=== PATIENT | female | born 1960 | race American Indian/Alaskan Native ===

== ENCOUNTER 2019-08-12 21:13 | Emergency (ER) | payer OTHER ==
--- NOTE | 2019-08-13 07:39 | Emergency Department Report ---
- General Chief Complaint: Upper Respiratory Infection Stated Complaint: COLD SYM Time Seen by Provider: 08/13/19 06:49 Source: patient Mode of arrival: Ambulatory Limitations: No Limitations - History of Present Illness Initial Comments: This very pleasant 58-year-old female presents the emergency department for evaluation of cough, congestion, generalized body aches and generalized malaise over the past 3 days. Patient states she did not get a flu shot this year. She reports she has had a fever during this time, productive cough with clear mucus. Patient denies any known past medical history other than bronchitis and pneumonia in the past, she denies any allergies to medications her current medication use. She denies any recent surgeries, travel, immobilization, chest pain, shortness of breath, dizziness, nausea, vomiting, diarrhea, lower extremity edema or any other associated symptoms. - Related Data Previous Rx's Medication Instructions Recorded Last Taken Type Benzonatate [Tessalon Perles] 100 mg PO Q8HR #21 capsule 08/13/19 Unknown Rx methylPREDNISolone [Medrol 4MG 4 mg PO QDAY #1 tab.ds.pk 08/13/19 Unknown Rx DOSEPAK (21 tabs)] Allergies Allergy/AdvReac Type Severity Reaction Status Date / Time No Known Allergies Allergy Unverified 08/13/19 01:03 ED Review of Systems ROS: Stated complaint: COLD SYM Other details as noted in HPI Comment: All other systems reviewed and negative Constitutional: chills, fever Eyes: denies: eye pain, eye discharge, vision change ENT: throat pain. denies: ear pain Respiratory: cough. denies: shortness of breath, wheezing Cardiovascular: denies: chest pain, palpitations Endocrine: no symptoms reported Gastrointestinal: denies: abdominal pain, nausea, diarrhea Genitourinary: denies: urgency, dysuria, discharge Musculoskeletal: as per HPI, myalgia. denies: back pain, joint swelling, arthralgia Skin: denies: rash, lesions Neurological: denies: headache, weakness, paresthesias Psychiatric: denies: anxiety, depression Hematological/Lymphatic: denies: easy bleeding, easy bruising ED Past Medical Hx - Past Medical History Previous Medical History?: Yes Additional medical history: Bronchitis, Pneumonia - Surgical History Past Surgical History?: Yes Additional Surgical History: Hernia repair, Skin graft left arm. - Social History Smoking Status: Never Smoker Substance Use Type: None - Medications Home Medications: Home Medications Medication Instructions Recorded Confirmed Last Taken Type Benzonatate [Tessalon Perles] 100 mg PO Q8HR #21 capsule 08/13/19 Unknown Rx methylPREDNISolone [Medrol 4MG 4 mg PO QDAY #1 tab.ds.pk 08/13/19 Unknown Rx DOSEPAK (21 tabs)] ED Physical Exam - General Limitations: No Limitations General appearance: alert, in no apparent distress - Head Head exam: Present: atraumatic, normocephalic - Eye Eye exam: Present: normal appearance - ENT ENT exam: Present: mucous membranes moist - Neck Neck exam: Present: normal inspection, full ROM. Absent: meningismus - Respiratory Respiratory exam: Present: normal lung sounds bilaterally. Absent: respiratory distress, wheezes, rales, rhonchi, stridor - Cardiovascular Cardiovascular Exam: Present: regular rate, normal rhythm. Absent: systolic murmur, diastolic murmur, rubs, gallop - GI/Abdominal GI/Abdominal exam: Present: soft, normal bowel sounds - Extremities Exam Extremities exam: Present: normal inspection, other (negative Homans sign bilaterally). Absent: calf tenderness - Back Exam Back exam: Present: normal inspection - Neurological Exam Neurological exam: Present: alert, oriented X3 - Psychiatric Psychiatric exam: Present: normal affect, normal mood - Skin Skin exam: Present: warm, dry, intact, normal color. Absent: rash ED Course Vital Signs 08/12/19 08/13/19 08/13/19 21:58 00:57 05:21 Temperature 99.6 F 99.3 F Pulse Rate 95 H 87 84 Respiratory 20 20 20 Rate Blood Pressure 129/71 116/72 122/67 O2 Sat by Pulse 95 98 94 Oximetry ED Medical Decision Making - Medical Decision Making Patient is nontoxic in no acute distress. Vitals are stable. Patient is a low risk by well's criteria for PE and no pleuritic pain, hypoxia, tachycardia, hemoptysis, recent immobilization or surgery, or history of PE. Patient has normal lung sounds, no hypoxia, and no sounds of pneumonia on exam. I did offer to order an x-ray however due to her abnormal lung sounds and normal vitals patient declined which I think is reasonable. We'll treat with steroids, cough medication and supportive therapy for likely viral syndrome most likely influenza. Patient is out of the window for Tamiflu at this time. Patient instructed to return emergently changing worsening symptoms. - Differential Diagnosis influenza, pneumonia, bronchitis, PE Critical care attestation.: If time is entered above; I have spent that time in minutes in the direct care of this critically ill patient, excluding procedure time. ED Disposition Clinical Impression: Acute viral syndrome Disposition: DC-01 TO HOME OR SELFCARE Is pt being admited?: No Does the pt Need Aspirin: No Condition: Stable Instructions: Influenza (ED) Prescriptions: methylPREDNISolone [Medrol 4MG DOSEPAK (21 tabs)] 4 mg PO QDAY #1 tab.ds.pk Benzonatate [Tessalon Perles] 100 mg PO Q8HR #21 capsule Referrals: LORENZO WANG MD [Primary Care Provider] - 3-5 Days Forms: Work/School Release Form(ED) Time of Disposition: 07:39
[2019-08-13 07:51] VITALS: BP 111/68
== END 2019-08-13 07:53 | disposition home or self-care (01) ==
LOC: ED 21:13
DX: B34.9 Viral infection, unspecified (principal); Z79.899 Other long term (current) drug therapy

== ENCOUNTER 2020-10-19 11:25 | Outpatient (CLI) | payer BC ==
[2020-10-19 12:14] LABS: Basophils % (Auto) 0.7 % (0.0-1.8); Eosinophils # (Auto) 0.1 K/mm3 (0.0-0.4); Eosinophils % (Auto) 1.5 % (0.0-4.3); Hematocrit 40.2 % (30.3-42.9); Hemoglobin 13.8 gm/dl (10.1-14.3); Lymphocytes # (Auto) 2.5 K/mm3 (1.2-5.4); Lymphocytes % (Auto) 52.5 % (13.4-35.0); Mean Corpuscular HGB Conc 35 % (30-34); Mean Corpuscular Volume 89 fl (79-97); Monocytes # (Auto) 0.4 K/mm3 (0.0-0.8); Monocytes % (Auto) 8.3 % (0.0-7.3); Platelet Count 342 K/mm3 (140-440); Red Cell Distribution Width 13.4 % (13.2-15.2)
[2020-10-19 12:33] LABS: Mucus,Urine FEW /HPF; WBC,Urine < 1.0 /HPF (0.0-6.0)
[2020-10-19 12:39] LABS: Bilirubin,Urine NEG (Negative); Blood,Urine NEG (Negative); Color,Urine Yellow (Yellow); Protein,Urine <15 mg/dL mg/dL (Negative); Urobilinogen,Urine < 2.0 mg/dL (<2.0)
[2020-10-19 13:08] LABS: Creatinine,Urine 113.9 mg/dL (0.1-20.0)
[2020-10-19 20:05] LABS: Alanine Aminotransferase 11 units/L (7-56); Albumin 4.3 g/dL (3.9-5); BUN/Creatinine Ratio 18; Blood Urea Nitrogen 14 mg/dL (7-17); Calcium 9.4 mg/dL (8.4-10.2); Chol/HDL Ratio 2.79 %; HDL Cholesterol 53 mg/dL (40-59); Hemolysis Index 2; LDL Cholesterol,Direct 90 mg/dL (50-130)
== END 2020-10-19 11:26 | disposition home or self-care (01) ==
LOC: LAB 11:25
PROVIDERS: ATTEND Family Medicine
DX: E11.9 Type 2 diabetes mellitus without complications (principal)
CPT/HCPCS: 36415; 80053; 80061; 81001; 82043; 83036; 85025

== ENCOUNTER 2021-03-07 00:53 | Emergency (ER) | payer BC ==
[2021-03-07] MEDS ORDERED: oxyCODONE /ACETAMINOPHEN 5-325MG TAB PO ONE (03:05)
--- NOTE | 2021-03-07 03:48 | XRay Report ---
Pelvis AP Indication: R LE pain radiating Findings: There is no fracture, subluxation, or other acute radiographic abnormality of the pelvis or either hi p. Signer Name: Sony Allen MD Signed: 03/07/2021 3:43 AM Workstation Name: [id number]
--- NOTE | 2021-03-07 03:50 | Vascular Lab Report ---
DUPLEX DOPPLER LOWER EXTREMITY VEINS, RIGHT INDICATION / CLINICAL INFORMATION: Right leg pain. TECHNIQUE: Duplex doppler imaging was performed through the veins of the right lower extremity using venous compression and other maneuvers. COMPARISON: None available. FINDINGS: RIGHT COMMON FEMORAL VEIN: Negative. RIGHT FEMORAL VEIN: Negative. RIGHT POPLITEAL VEIN: Negative. RIGHT CALF VEINS: Negative. ADDITIONAL FINDINGS: None. IMPRESSION: 1. No sonographic evidence for DVT in the right lower extremity. Signer Name: Sony Allen MD Signed: 03/07/2021 3:46 AM Workstation Name: [id number]
[2021-03-07] MEDS ORDERED: MORPHINE 2 MG/1 ML INJ IV ONE (03:57)
[2021-03-07] MEDS ORDERED: ONDANSETRON 4 MG/2 ML INJ IV ONE (04:11)
[2021-03-07 04:13] LABS: Hemoglobin 14.2 gm/dl (10.1-14.3); Mean Corpuscular HGB Conc 34 % (30-34); Mean Corpuscular Volume 89 fl (79-97); Red Cell Distribution Width 14.6 % (13.2-15.2)
[2021-03-07 04:17] LABS: Platelet Count 121 K/mm3 (140-440)
[2021-03-07 04:53] LABS: Large Platelets Few; Platelet Estimate Consistent w Auto; RBC Morphology Normal; Total Cells Counted 100
[2021-03-07 06:13] LABS: Blood Urea Nitrogen 9 mg/dL (7-17); Calcium 9.1 mg/dL (8.4-10.2); Hemolysis Index 76
[2021-03-07 06:14] LABS: BUN/Creatinine Ratio 18
--- NOTE | 2021-03-07 06:22 | Emergency Department Report ---
<JUWAN RUSSELL - Last Filed: 03/07/21 06:57> ED General Adult HPI - General Chief complaint: Extremity Injury, Lower Stated complaint: POSS CLOT RT LEG Source: patient Mode of arrival: Ambulatory Limitations: No Limitations - History of Present Illness Initial comments: 60-year-old female who works in the [employer] here complains of right leg pain. It was atraumatic. She states it is located in the right thigh and sometimes radiates down. She also states that her leg feels red and swollen. Severity scale (0 -10): 7 - Related Data Previous Rx's Medication Instructions Recorded Last Taken Type Benzonatate [Tessalon Perles] 100 mg PO Q8HR #21 capsule 08/13/19 Unknown Rx methylPREDNISolone [Medrol 4MG 4 mg PO QDAY #1 tab.ds.pk 08/13/19 Unknown Rx DOSEPAK (21 tabs)] Allergies Allergy/AdvReac Type Severity Reaction Status Date / Time No Known Allergies Allergy Unverified 08/13/19 01:03 ED Review of Systems Constitutional: denies: chills, fever Eyes: denies: eye pain, eye discharge, vision change ENT: denies: ear pain, throat pain Respiratory: denies: cough, shortness of breath, wheezing Cardiovascular: denies: chest pain, palpitations Endocrine: no symptoms reported Gastrointestinal: denies: abdominal pain, nausea, diarrhea Genitourinary: denies: urgency, dysuria, discharge Musculoskeletal: myalgia. denies: back pain Skin: denies: rash Neurological: denies: headache, weakness Psychiatric: denies: anxiety, depression Hematological/Lymphatic: denies: easy bleeding ED Past Medical Hx - Past Medical History Previous Medical History?: Yes Hx Diabetes: Yes Additional medical history: Bronchitis, Pneumonia - Surgical History Past Surgical History?: Yes Additional Surgical History: Hernia repair, Skin graft left arm. - Social History Smoking Status: Never Smoker Substance Use Type: None - Medications Home Medications: Home Medications Medication Instructions Recorded Confirmed Last Taken Type Benzonatate [Tessalon Perles] 100 mg PO Q8HR #21 capsule 08/13/19 Unknown Rx methylPREDNISolone [Medrol 4MG 4 mg PO QDAY #1 tab.ds.pk 08/13/19 Unknown Rx DOSEPAK (21 tabs)] ED Physical Exam - General Limitations: No Limitations General appearance: alert, in no apparent distress - Head Head exam: Present: atraumatic, normocephalic - Eye Eye exam: Present: normal appearance - ENT ENT exam: Present: mucous membranes moist - Neck Neck exam: Present: normal inspection - Respiratory Respiratory exam: Present: normal lung sounds bilaterally. Absent: respiratory distress - Cardiovascular Cardiovascular Exam: Present: regular rate, normal rhythm. Absent: systolic murmur, diastolic murmur, rubs, gallop - Expanded Cardiovascular Exam Expanded Peripheral pulses: 1+: Femoral (R), Femoral (L), 2+: Dorsalis Pedis (R), Dorsalis Pedis (L) - GI/Abdominal GI/Abdominal exam: Present: soft, normal bowel sounds - Extremities Exam Extremities exam: Present: normal inspection - Back Exam Back exam: Present: normal inspection - Neurological Exam Neurological exam: Present: alert, oriented X3 - Psychiatric Psychiatric exam: Present: normal affect, normal mood - Skin Skin exam: Present: warm, dry, intact, normal color. Absent: rash ED Course - Reevaluation(s) Reevaluation #1: 03/07/21 06:44 I discussed results with patient she states she feels improved. ED Medical Decision Making - Lab Data Result diagrams: 03/07/21 03:52 03/07/21 05:17 - Radiology Data Radiology results: report reviewed, image reviewed - Medical Decision Making 60-year-old female presents emergency department after developing pain in her right thigh for the past 5 days. On exam patient does have decreased pulses in the femoral area and tenderness in the right thigh. Given this I am evaluating her aorta and femoral arteries. I have obtained an x-ray of the pelvis that is negative and a ultrasound of the right lower extremity which shows no DVT. ED Disposition Clinical Impression: Right thigh pain, Sciatica Disposition: DC-01 TO HOME OR SELFCARE Is pt being admited?: No Does the pt Need Aspirin: No Condition: Stable Instructions: Sciatica Referrals: PRIMARY MD PEREZ [Primary Care Provider] - 3-5 Days PATRICE JERRY MD [Referring] - 3-5 Days Forms: Work/School Release Form(ED) <ELISEO HORVATH - Last Filed: 03/07/21 08:13> ED Review of Systems ROS: Stated complaint: POSS CLOT RT LEG Other details as noted in HPI ED Course Vital Signs 03/07/21 01:18 Temperature 98.6 F Pulse Rate 80 Respiratory 18 Rate Blood Pressure 160/84 O2 Sat by Pulse 95 Oximetry - Reevaluation(s) Reevaluation #2: 03/07/21 08:[address] Russell to follow-up CTA of the abdomen with runoff to the right lower extremity. There is no vascular abnormality identified although there is finding of possible right Bartholin gland cyst. I personally went and assessed the patient and inquired about her pain which she states is radiating down the back of her right thigh. I performed a vaginal exam in the form of inspection and palpation and there is no significant tender masses of the vulva and no obvious signs of infection. I therefore proceeded with discharge of the patient with instructions to follow-up with a neurologist for possible sciatica. Instructed her to take ibuprofen 600 to 800 mg up to 3 times daily only with food as needed for the pain until she is able to follow-up. The patient expressed understanding agreement with this plan of care ED Medical Decision Making - Lab Data Result diagrams: 03/07/21 03:52 03/07/21 05:17 Critical care attestation.: If time is entered above; I have spent that time in minutes in the direct care of this critically ill patient, excluding procedure time. ED Disposition Is pt being admited?: No
--- NOTE | 2021-03-07 07:07 | Cat Scan Report ---
CTA ABDOMEN, PELVIS, AND LOWER EXTREMITIES WITH CONTRAST INDICATION / CLINICAL INFORMATION: Weak femoral pulses; RIGHT leg pain. TECHNIQUE: Axial CT images were obtained through the abdomen, pelvis and lower extremities after inje ction of 100 cc of Omnipaque 350 IV contrast. 3 plane MIP / 3D reconstructions were produced. All CT scans at this location are performed using CT dose reduction for ALARA by means of automated exposure control. COMPARISON: None available. FINDINGS: CTA ABDOMEN: Abdominal Aorta: No significant abnormality. Celiac Artery: No significant abnormality. Superior Mesenteric Artery: No significant abnormality. Right Renal Artery: No significant abnormality. Left Renal Artery: No significant abnormality. Inferior Mesenteric Artery: No significant abnormality. CTA PELVIS: RIGHT: - Common Iliac Artery: Mild atherosclerotic calcification without stenosis. - Internal Iliac Artery: No significant abnormality. - External Iliac Artery: No significant abnormality. LEFT: - Common Iliac Artery: No significant abnormality. - Internal Iliac Artery: No significant abnormality. - External Iliac Artery: No significant abnormality. CTA LOWER EXTREMITIES: RIGHT LOWER EXTREMITY: - Common Femoral Artery: No significant abnormality. - Superficial Femoral Artery: No significant abnormality. - Profunda Femoral Artery: No significant abnormality. - Popliteal Artery: No significant abnormality. - Anterior Tibial Artery: No significant abnormality. - Tibioperoneal Trunk: No significant abnormality. - Posterior Tibial Artery: No significant abnormality. - Peroneal Artery: No significant abnormality. - Ankle runoff: Three vessel. LEFT LOWER EXTREMITY: - Common Femoral Artery: No significant abnormality. - Superficial Femoral Artery: No significant abnormality. - Profunda Femoral Artery: No significant abnormality. - Popliteal Artery: No significant abnormality. - Anterior Tibial Artery: No significant abnormality. - Tibioperoneal Trunk: No significant abnormality. - Posterior Tibial Artery: No significant abnormality. - Peroneal Artery: No significant abnormality. - Ankle runoff: Three vessel. NONTARGET STRUCTURES: ABDOMEN:No significant abnormality. PELVIS:There is a 1.8 cm hypodensity structure along the inferior aspect of the vagina on the right p ossibly representing a Bartholin's cyst. LOWER EXTREMITIES:No significant abnormality. SKELETAL: No significant abnormality. ADDITIONAL FINDINGS: None. IMPRESSION: 1. No significant vascular disease is seen. There is mild atherosclerotic calcification in the common iliac artery on the right without stenosis. 2. There is a possible Bartholin's cyst along the right inferior aspect of the vagina Signer Name: Sony Allen MD Signed: 03/07/2021 7:03 AM Workstation Name: [id number]
[2021-03-07 08:14] VITALS: BP 166/89
== END 2021-03-07 08:30 | disposition home or self-care (01) ==
LOC: ED 00:53
DX: M54.31 Sciatica, right side (principal); M79.651 Pain in right thigh; E11.9 Type 2 diabetes mellitus without complications; Z79.899 Other long term (current) drug therapy
CPT/HCPCS: 36415; 72170; 75635; 80048; 85007; 85025; 93971; 96374; 96375; 99284; J2270; J2405; Q9967

== ENCOUNTER 2021-03-15 12:02 | Outpatient (CLI) | payer BC ==
--- NOTE | 2021-03-15 15:12 | Magnetic Resonance Report ---
MRI LUMBAR SPINE WITHOUT CONTRAST INDICATION / CLINICAL INFORMATION: BACK PAIN--RIGHT HIP PAIN. TECHNIQUE: Multisequence, multiplanar images of the lumbar spine were obtained. COMPARISON: None available. FINDINGS: ALIGNMENT: Normal lumbar lordosis without significant scoliosis. VERTEBRAE:Normal marrow signal and vertebral body height for age. Discs: There is moderate disc space narrowing and desiccation at L5-S1. The remaining discs are unrem arkable. VISUALIZED SPINAL CORD: No significant abnormality. The conus terminates at the level of L1-2. [id number] ANALYSIS: L1-2: No significant abnormality. L2-3: No significant abnormality with the disc. Mild facet arthropathy and mild hypertrophy of the li gamentum flavum. L3-4: No significant abnormality with the disc. Mild facet arthropathy and mild hypertrophy of the li gamentum flavum. L4-5: No significant abnormality with the disc. Moderate facet arthropathy and moderate hypertrophy o f the ligamentum flavum. L5-S1: Disc desiccation and narrowing is again noted. A large right paracentral disc protrusion is id entified which exerts mass effect on the right S1 nerve root within the spinal canal. There is mild t o moderate right neural foraminal narrowing. Mild to moderate facet arthropathy is also identified. PARASPINAL SOFT TISSUES: No significant abnormality. ADDITIONAL FINDINGS: None. IMPRESSION: Moderate degenerative disc disease at L5-S1 with a large right paracentral disc protrusion with mass effect as described. Mild to moderate right neural foraminal narrowing. Mild to moderate multilevel facet arthropathy. Signer Name: Indra Sanchez Jr, MD Signed: 03/15/2021 3:07 PM Workstation Name: [id number]
== END 2021-03-15 12:03 | disposition home or self-care (01) ==
LOC: MRI 12:02
PROVIDERS: ATTEND Physician Assistant Medical
DX: M51.37 Other intervertebral disc degeneration, lumbosacral region (principal); M48.07 Spinal stenosis, lumbosacral region; M47.817 Spondylosis without myelopathy or radiculopathy, lumbosacral region
CPT/HCPCS: 72148

== ENCOUNTER 2021-06-26 01:24 | Emergency (ER) | payer BC ==
[2021-06-26] MEDS ORDERED: oxyCODONE /ACETAMINOPHEN 5-325MG TAB PO ONE (03:10)
[2021-06-26] MEDS ORDERED: KETOROLAC 60 MG/2 ML INJ IM ONE (03:10)
--- NOTE | 2021-06-26 03:15 | Emergency Department Report ---
ED General Adult HPI - General Chief complaint: Back Pain/Injury Stated complaint: BACK PAIN Time Seen by Provider: 06/26/21 02:36 Source: patient Mode of arrival: Ambulatory Limitations: Physical Limitation - History of Present Illness Initial comments: 60-year-old -[place] female patient presents with complaints of acute on chronic back pain. Patient states that she has a herniated disc in her lower back and right-sided sciatica. She is currently following with Dr. Guajardo, orthopedics, and is in the process of getting cleared for surgery. She reports since returning to work on 06/07/2021, her back pain has been worsening with sudden worsening 4 days ago. She is currently taking meloxicam, gabapentin, and Robaxin without relief. She has history of diabetes and is compliant with her diabetic medications. She denies any new injuries, loss of bladder/bowel control, fever/chills/sweats, difficulty with ambulation, or new numbness/ tingling/weakness in her limbs. Severity scale (0 -10): 10 - Related Data Previous Rx's Medication Instructions Recorded Last Taken Type Benzonatate [Tessalon Perles] 100 mg PO Q8HR #21 capsule 08/13/19 Unknown Rx methylPREDNISolone [Medrol 4MG 4 mg PO QDAY #1 tab.ds.pk 08/13/19 Unknown Rx DOSEPAK (21 tabs)] Acetaminophen/Codeine [Tylenol 1 tab PO Q8H PRN #10 tab 06/26/21 Unknown Rx /Codeine # 3 tab] Ketorolac [Toradol] 10 mg PO Q6H PRN #15 tablet 06/26/21 Unknown Rx Allergies Allergy/AdvReac Type Severity Reaction Status Date / Time No Known Allergies Allergy Unverified 08/13/19 01:03 ED Review of Systems ROS: Stated complaint: BACK PAIN Other details as noted in HPI Constitutional: denies: see HPI, diaphoresis, fever, malaise Respiratory: denies: shortness of breath Cardiovascular: denies: chest pain Gastrointestinal: denies: abdominal pain, nausea, vomiting Genitourinary: denies: urgency, dysuria, frequency Musculoskeletal: back pain Neurological: denies: numbness, paresthesias, abnormal gait ED Past Medical Hx - Past Medical History Hx Diabetes: Yes Hx Arthritis: Yes Additional medical history: Bronchitis, Pneumonia - Surgical History Additional Surgical History: Hernia repair, Skin graft left arm. - Social History Smoking Status: Never Smoker Substance Use Type: None - Medications Home Medications: Home Medications Medication Instructions Recorded Confirmed Last Taken Type Benzonatate [Tessalon Perles] 100 mg PO Q8HR #21 capsule 08/13/19 Unknown Rx methylPREDNISolone [Medrol 4MG 4 mg PO QDAY #1 tab.ds.pk 08/13/19 Unknown Rx DOSEPAK (21 tabs)] Acetaminophen/Codeine [Tylenol 1 tab PO Q8H PRN #10 tab 06/26/21 Unknown Rx /Codeine # 3 tab] Ketorolac [Toradol] 10 mg PO Q6H PRN #15 tablet 06/26/21 Unknown Rx ED Physical Exam - General Limitations: Physical Limitation General appearance: alert, in no apparent distress - Head Head exam: Present: atraumatic, normocephalic - Eye Eye exam: Present: normal appearance. Absent: scleral icterus - Respiratory Respiratory exam: Absent: respiratory distress - Cardiovascular Cardiovascular Exam: Present: regular rate - Back Exam Back exam: Present: paraspinal tenderness (Right lower lumbar), vertebral tenderness (Lower lumbar; no obvious deformities noted) - Expanded Back Exam Expanded Back exam: Sciatic Notch Tenderness: Right - Neurological Exam Neurological exam: Present: alert, oriented X3 - Psychiatric Psychiatric exam: Present: normal affect, normal mood - Skin Skin exam: Present: warm, dry, intact, normal color. Absent: rash, cyanosis, diaphoretic ED Course Vital Signs 06/26/21 01:30 Temperature 97.6 F Pulse Rate 87 Respiratory 17 Rate Blood Pressure 177/84 [Right] O2 Sat by Pulse 97 Oximetry ED Medical Decision Making - Medical Decision Making 60-year-old -[place] female patient presents with complaints of acute on chronic back pain. Patient states that she has a herniated disc in her lower back and right-sided sciatica. She is currently following with Dr. Guajardo, manav opedics, and is in the process of getting cleared for surgery. She reports since returning to work on 06/07/2021, her back pain has been worsening with sudden worsening 4 days ago. She is currently taking meloxicam, gabapentin, and Robaxin without relief. She has history of diabetes and is compliant with her diabetic medications. She denies any new injuries, loss of bladder/bowel control, fever/chills/sweats, difficulty with ambulation, or new numbness/tingling/weakness in her limbs. Patient also reports she has not been performing her physical therapy stretches due to working a great deal. Pain improved with meds given here in the ED. Patient states she has tried naproxen and diclofenac in the past without improvement in her symptoms. We will try a few days of Toradol. Discussed importance of not using Toradol for more than 4 days. Also discussed importance of sciatic stretching, icing, patient is well-appearing and stable for discharge home. She is to follow-up with her senior engineering specialist within 3 days. Discussed signs and symptoms that should prompt immediate return to the ED with patient who verbalized understanding. Critical care attestation.: If time is entered above; I have spent that time in minutes in the direct care of this critically ill patient, excluding procedure time. ED Disposition Clinical Impression: Acute exacerbation of chronic low back pain Disposition: 01 HOME / SELF CARE / HOMELESS Is pt being admited?: No Condition: Stable Instructions: Chronic Back Pain, [id number], Sciatica Additional Instructions: Please follow-up with your senior engineering specialist within 3 days Prescriptions: Ketorolac [Toradol] 10 mg PO Q6H PRN #15 tablet PRN Reason: Pain Acetaminophen/Codeine [Tylenol /Codeine # 3 tab] 1 tab PO Q8H PRN #10 tab PRN Reason: Pain , Severe (7-10) Forms: Work/School Release Form(ED)
[2021-06-26 06:47] VITALS: BP 178/93
== END 2021-06-26 06:45 | disposition home or self-care (01) ==
LOC: ED 01:24
DX: M54.50 Low back pain, unspecified (principal); G89.29 Other chronic pain; J40 Bronchitis, not specified as acute or chronic; M19.90 Unspecified osteoarthritis, unspecified site; E11.9 Type 2 diabetes mellitus without complications
CPT/HCPCS: 96372; 99282; J1885

== ENCOUNTER 2021-10-08 14:31 | Outpatient (CLI) | payer BC, OTHER ==
--- NOTE | 2021-10-08 17:57 | Magnetic Resonance Report ---
MR lumbar spine wo con INDICATION / CLINICAL INFORMATION: 60 years Female; M54.16 M79.606 M54.9. TECHNIQUE: Multisequence, multiplanar images of the lumbar spine were obtained. COMPARISON: The study is compared to previous MRI of 03/15/2021. FINDINGS: ALIGNMENT: There is continued minimal anterolisthesis at L4-L5. There is also slight curvature the rayne mbar spine, convex toward the left. VERTEBRAE:There has been interval right hemilaminectomy and discectomy at L5-S1. There is fluid signa l within the right laminectomy defect extending posteriorly indicative of recent postoperative change s and correlation would be needed regarding the timing of surgery there is also associated moderate e ndplate edema at these levels. Remaining lumbar segments appear to demonstrate appropriate signal int ensity. VISUALIZED SPINAL CORD: The motion degrades image quality. However, the distal spinal cord appears to demonstrate appropriate morphology and terminates at L1-2. [id number] ANALYSIS: L1-2: No significant abnormality. L2-3: No significant abnormality. L3-4: No significant abnormality. L4-5: The broad-based disc bulge mildly flattens the ventral thecal sac at. Additionally, there are m ild facet joint changes with slight neural foraminal narrowing bilaterally . The findings appear to c orrelate with previous exam. L5-S1: There has been interval right hemilaminectomy and discectomy as noted above with fluid collect ion within the laminectomy defect extending posteriorly indicative of recent postop changes. There is also notable effacement of the right lateral recess at. There is now a significant increase STIR sig nal within the L5-S1 disc space with developing moderate edema of the adjacent endplates which may al so be on a postoperative basis. However, correlation would be needed regarding concern for developing infectious process given the degree of interval changes. Furthermore, the heterogeneous signal along the anterior epidural space and appears to contribute to overall moderate degree of spinal stenosis. Minimal inflammatory changes are seen within the adjacent paraspinal soft tissues anteriorly without clear evidence of fluid collections on the current exam. PARASPINAL SOFT TISSUES: As detailed above with postoperative changes at L5-S1. 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 IMPRESSION: 1. Status post interval right hemilaminectomy and discectomy at L5-S1 with notable effacement of the right lateral recess along with fluid collection extending within the laminectomy defect posteriorly which appears to be on a recent postoperative basis and correlation be needed regarding timing of jeannine sommer. However, there is also notable increased signal within the L5-S1 disc space with developing end plate edema and correlation would be needed regarding concern for developing infectious process as de tailed above. Signer Name: Bryan Zarate MD Signed: 10/08/2021 5:53 PM Workstation Name: [id number]
== END 2021-10-08 14:32 | disposition home or self-care (01) ==
LOC: MRI 14:31
DX: M47.26 Other spondylosis with radiculopathy, lumbar region (principal); M54.9 Dorsalgia, unspecified; M79.606 Pain in leg, unspecified; M79.89 Other specified soft tissue disorders; M96.1 Postlaminectomy syndrome, not elsewhere classified
CPT/HCPCS: 72148

== ENCOUNTER 2021-12-14 10:35 | Outpatient (CLI) | payer BC, OTHER ==
[2021-12-14 12:34] LABS: Blood Urea Nitrogen 16 mg/dL (7-17)
--- NOTE | 2021-12-14 16:45 | Magnetic Resonance Report ---
MRI LUMBAR SPINE WITHOUT AND WITH CONTRAST INDICATION / CLINICAL INFORMATION: M54.16 LUMBAR RADICULOPATHY, lower back pain and sepsis. TECHNIQUE: Multisequence, multiplanar images of the lumbar spine were obtained. Contrast dose report: Clairscan: 16 ml, administered intravenously. COMPARISON: MRI lumbar spine 10/08/2021 and 03/15/2021 FINDINGS: POSTOPERATIVE CHANGES: Status post right hemilaminotomy and partial facetectomy at L5-S1. ALIGNMENT: Normal alignment is maintained throughout the lumbar region. VERTEBRAE:Extensive bone marrow edema is present in the L5 and S1 vertebrae. This has progressed sinc e 10/08/2021. DISC MORPHOLOGY: Fluid signal intensity is observed in the L5-S1 intervertebral disc. Disc height and disc signal intensity is otherwise normally maintained. VISUALIZED SPINAL CORD: Distal thoracic spinal cord, conus and nerve roots of the cauda equina all jimenez ve an unremarkable appearance. Conus terminates at about the level of mid L2 vertebral body. MYJKY-[id number]-UWOCF ANALYSIS: L1-2: No significant abnormality. L2-3: No significant abnormality. L3-4: No significant abnormality. L4-5: Bilateral facet arthritic changes are noted. There is no indication of disc herniation, central canal stenosis or neuroforaminal narrowing. L5-S1: Postoperative changes status post right in the laminotomy and partial facetectomy. Previously demonstrated fluid collection in the postop bed is no longer identified. Abnormal signal intensity is observed in the postoperative bed, in the L5-S1 intervertebral disc and adjacent vertebrae. Paraspin ous inflammatory changes are observed. Following administration of intravenous contrast material ther e is enhancement of the margins of the intervertebral disc and adjacent bone at the lumbosacral junct ion. Enhancement is seen in the right lateral epidural space and in the right hemilaminotomy defect. These findings suggest the presence of discitis and osteomyelitis with probable phlegmon in the posto p defect. No indication of epidural or paraspinous abscess is observed on this study. PARASPINAL SOFT TISSUES: Inflammatory changes are seen in the paraspinous soft tissues adjacent to th e L5-S1 disc and adjacent endplates. No additional paraspinous abnormalities are identified. Following administration of intravenous contrast material enhancement of normal vascular structures i s demonstrated. As noted above there is abnormal contrast enhancement along the margins of the L5-S1 disc in the L5 and S1 vertebrae as well as within the postoperative right hemilaminotomy and facetect abdon defect at the lumbosacral junction. ADDITIONAL FINDINGS: None. IMPRESSION: 1. Findings consistent with discitis and osteomyelitis at the L5-S1 level. Imaging findings do not guzman ggest the presence of a paraspinous or epidural abscess at this time. 2. Previously demonstrated fluid collection in the postoperative bed has largely resolved. Signer Name: Franklin Beckett MD Signed: 12/14/2021 4:41 PM Workstation Name: [id number]
== END 2021-12-14 10:36 | disposition home or self-care (01) ==
LOC: MRI 10:35
DX: M54.16 Radiculopathy, lumbar region (principal); M79.606 Pain in leg, unspecified; M54.9 Dorsalgia, unspecified
CPT/HCPCS: 36415; 72158; 82565; 84520; A9575